=== PATIENT | female | born 1980 | race American Indian/Alaskan Native ===

== ENCOUNTER 2017-05-08 05:48 | Observation (INO) | payer BC ==
--- NOTE | 2017-05-07 17:32 | History and Physical Report ---
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 Uterine Surgery (not C/S): negative Operations: Tubal Ligation 2009 Right paratubal cystectomy 2007 Hospitalizations: negative Anesthesia Complications: negative Abnormal PAP: positive Uterine Anomaly: negative ARMAND Exposure: negative Infertility: negative Infection History HIV Risk Eval: no Hx of STD: chlamydia Active Medications (reviewed today): IBUPROFEN 800 MG ORAL TABLET (IBUPROFEN) 1 po TID (PRN) OXYCODONE-ACETAMINOPHEN 5-325 MG ORAL TABLET (OXYCODONE-ACETAMINOPHEN) 1-2po q6h Current Allergies (reviewed today): No known allergies Past Medical History: Reviewed history from 08/20/2013 and no changes required: Negative Past Medical History Past Surgical History: Reviewed history from 09/09/2014 and no changes required: Tubal Ligation 2009 Laparoscopic Right paratubal cystectomy 2007 D&C for retain POC's Family History Summary: Reviewed history Last on 09/16/2015 and no changes required:05/07/2017 Other family member - Has No Family History of Biliary Tract Cancer - Entered On : 04/09/2017 Other family member - Has No Family History of Breast Cancer - Entered On: 2016 Other family member - Has No Family History of Brain Cancer - Entered On: 2016 Other family member - Has No Family History of Colon Cancer - Entered On: 2016 Other family member - Has No Family History of DVT/PE on OCP - Entered On: 2016 Other family member - Has No Family History of Kidney/Urinary Tract Cancer - Entered On: 04/09/2017 Other family member - Has No Family History of Ovarvian Cancer - Entered On: 04/09/2017 Other family member - Has No Family History of Pancreatic Cancer - Entered On: 04/09/2017 Other family member - Has No Family History of Stomach Cancer - Entered On: 04/09 Other family member - Has No Family History of Small Bowel Cancer - Entered On: 04/09/2017 Other family member - Has No Family History of Uterine Cancer - Entered On: 04/09 General Comments - FH: Family History of Diabetes Social History: Reviewed history from 04/04/2017 and no changes required: no e/t/d Patient is Smoking History: Patient has never smoked. Risk Factors: Smoked Tobacco Use: Never smoker Smokeless Tobacco Use: Never Passive smoke exposure: no Drug use: no HIV high-risk behavior: no Alcohol use: no Exercise: no Seatbelt use: 100 % PAP Smear History: Date of Last PAP Smear: 11/02/2016 Previous Tobacco Use: Signed On - 04/04/2017 Smoked Tobacco Use: Never smoker Smokeless Tobacco Use: Never Passive smoke exposure: no Drug use: no HIV high-risk behavior: no Previous Alcohol Use: Signed On - 04/04/2017 Alcohol use: yes Type: occ Drinks per day: social Exercise: no Seatbelt use: 100 % PAP Smear History: Date of Last PAP Smear: 11/02/2016 Review of Systems General Denies fever, chills, sweats, anorexia, fatigue, weakness, malaise, weight loss and sleep disorder. Complains of menorrhagia and painful periods. Denies vaginal discharge, incontinence, dysuria, hematuria, urinary frequency, amenorrhea, abnormal vaginal bleeding, pelvic pain, genital sores, decreased libido, painful sex, urinary urgency, hot flashes, vaginal dryness, vaginal itching and vaginal odor. CV Denies chest pains, palpitations, syncope, dyspnea on exertion, orthopnea, PND and peripheral edema. Resp Denies cough, dyspnea at rest, excessive sputum, hemoptysis, wheezing and pleurisy. GI Denies nausea, vomiting, diarrhea, constipation, change in bowel habits, abdominal pain, melena, hematochezia, jaundice, gas/bloating, indigestion/ heartburn, dysphagia and odynophagia. Endo Denies cold intolerance, heat intolerance, polydipsia, polyphagia, polyuria and unusual weight change. Breast Denies left breast lump, right breast lump, nipple discharge, bloody discharge from nipple, breast pain, abnormal mammogram and breast enlargement. MS Denies back pain, joint pain, joint swelling, muscle cramps, muscle weakness, stiffness, arthritis, sciatica, restless legs, leg pain at night and leg pain with exertion. Derm Denies rash, itching, dryness and suspicious lesions. Neuro Denies paralysis, paresthesias, headache, seizures, tremors, vertigo, transient blindness, frequent falls, frequent headaches and difficulty walking. Psych Denies depression, anxiety, irritability and mood swings. Eyes Denies blurring, diplopia, irritation, discharge, vision loss, eye pain and photophobia. ENT Denies earache, ear discharge, tinnitus, decreased hearing, nasal congestion, nosebleeds, sore throat and hoarseness. Allergy Denies urticaria, allergic rash, hay fever and recurrent infections. Heme Denies abnormal bruising, bleeding and enlarged lymph nodes. 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 Questions answered. Discussed with patient various medical and surgical therapies common for treatment: Hormonal/medical therapy,endometrial ablation or hysterectomy. she desires to proceed with hysterectomy with removal of both fallopian tubes and other indicated procedures Consent reviewed and signed . Possible laparoscopy or laparotomy explained to patient. The risks and alternatives for this surgery were reviewed with the patient. She was informed of possible bleeding, infection, injury to bowel, bladder, ureters or other adjacent organs. She desires ovarian conservation. She was informed she may require surgery later to have her ovaries removed for a benign or mailgnant condition. She was also informed she will not be able to get after her uterus has been removed. The patient was instructed/informed the following: The normal length of hospital stay for this procedure. Nothing to eat or drink after midnight the evening prior to surgery. Clear liquids the day before surgery. Fleets enema the day prior to surgery. Pre-op instruction sheets given. Wound care instructions given. Infection precautions reviewed, patient to call for any signs or symptoms of infection. The usual discomforts associated with this procedure were detailed. Proper use of pain medicines was reviewed. Patient was given ample opportunity to have all her questions answered before signing informed consent. Problem # 2: Secondary dysmenorrhea (ICD-625.3) (XLD12-O49.5) Problem # 3: Pelvic and perineal pain (ICD-789.00) (QOB80-S37.2) It was extensively explained to her that her pain may persist, recur or change in nature due to the difficulty with diagnosis chronic pelvic pain or development of adhesions. She declined other treatment options at this time and desires to proceed wtih hysterectomy with (B) salpingectomy and other indicated procedures Counseling and coordination of care was >50% of the face to face time. The total face to face time for this visit was 40 minutes. Medications Added to Medication List This Visit: 1) Ibuprofen 800 Mg Oral Tablet (Ibuprofen) .... 1 po tid (prn) 2) Oxycodone-acetaminophen 5-325 Mg Oral Tablet (Oxycodone-acetaminophen) .... 1-2po q6h Prescriptions: IBUPROFEN 800 MG ORAL TABLET (IBUPROFEN) 1 po TID (PRN) #60 x 1 Entered and Authorized by: Dilma Aguilar MD Method used: Print then Give to Patient RxID: [id number] OXYCODONE-ACETAMINOPHEN 5-325 MG ORAL TABLET (OXYCODONE-ACETAMINOPHEN) 1-2po q6h #20 Tablet x 0 Entered and Authorized by: Dilma Aguilar MD Method used: Print then Give to Patient RxID: [id number] Medications and Allergies Allergies Allergy/AdvReac Type Severity Reaction Status Date / Time No Known Allergies Allergy Verified 05/07/17 15:13 Home Medications Medication Instructions Recorded Confirmed Last Taken Type No Known Home Medications [No 05/07/17 05/07/17 Unknown History Reported Home Medications] Active Meds: Active Medications Celecoxib (Celebrex) 200 mg PO PREOP NR Stop: 05/08/17 21:00 Famotidine (Pepcid) 20 mg PO PREOP NR Stop: 05/08/17 21:00 Fentanyl (Sublimaze) 100 mcg IV ONCE NR Stop: 05/08/17 21:00 Gabapentin (Neurontin) 300 mg PO PREOP NR Stop: 05/08/17 21:00 Sodium Chloride (Nacl 0.9% 1000 Ml) 1,000 mls @ 100 mls/hr IV DIRECT JESUSITA Midazolam HCl (Versed) 2 mg IV PREOP NR Stop: 05/08/17 21:00 Assessment and Plan - Patient Problems (1) Menorrhagia Status: Acute Qualifiers: Menorrahagia type: M (2) Secondary dysmenorrhea Status: Acute (3) Pelvic pain Status: Acute
[~2017-05-08 05:48] MED LIST: ANCEF/STERILE WATER 2 GM/20 ML 2 GM/20 ML SYRINGE IV NR
[2017-05-08] MEDS ORDERED: NACL BACTERIOSTATIC INFILTRATI ONE (06:38)
[2017-05-08] MEDS ORDERED: VERSED IV NR (07:00)
[2017-05-08] MEDS ORDERED: SUBLIMAZE IV NR (07:00)
[2017-05-08] MEDS ORDERED: NEURONTIN PO NR (07:00)
[2017-05-08] MEDS ORDERED: NACL 0.9% 1000 ML 1,000 ML IV SCH (07:00)
[2017-05-08] MEDS ORDERED: PEPCID PO NR (07:00)
[2017-05-08 07:13] LABS: Basophils % (Auto) 0.2 % (0.0-1.8); Eosinophils % (Auto) 0.3 % (0.0-4.3); Hematocrit 38.5 % (30.3-42.9); Hemoglobin 12.8 gm/dl (10.1-14.3); Mean Corpuscular HGB Conc 33 % (30-34); Mean Corpuscular Hemoglobin 29 pg (28-32); Mean Corpuscular Volume 87 fl (79-97); Platelet Count 254 K/mm3 (140-440); Red Blood Count 4.41 M/mm3 (3.65-5.03); Red Cell Distribution Width 12.4 % (13.2-15.2); White Blood Count 10.9 K/mm3 (4.5-11.0)
--- NOTE | 2017-05-08 07:19 | Anesthesia Day of Surgery ---
Anesthesia Day of Surgery - Day of Surgery Patient Examined: Yes Patient H&P Reviewed: Yes Patient is NPO: Yes
--- NOTE | 2017-05-08 07:19 | Anesthesia Consultation ---
Anesthesia Consult and Med Hx Date of service: 05/08/17 - Airway Anesthetic Teeth Evaluation: Good ROM Head & Neck: Adequate Mental/Hyoid Distance: Adequate Mallampati Class: Class I Intubation Access Assessment: Good - Pulmonary Exam CTA: Yes - Cardiac Exam Cardiac Exam: RRR - Pre-Operative Health Status ASA Pre-Surgery Classification: ASA1 Proposed Anesthetic Plan: General Nerve Block: TAP - Pulmonary Hx Smoking: No - Cardiovascular System Hx Hypertension: No - Central Nervous System Hx Psychiatric Problems: No - Other Systems Hx Alcohol Use: Yes (occas) Hx Cancer: No
[2017-05-08] MEDS ORDERED: MARCAINE 0.5% 30 ML INFILTRATI ONE (07:23)
[2017-05-08] MEDS ORDERED: CLONIDINE 1,000 MCG/10 ML VIAL EP ONE (07:24)
[2017-05-08] MEDS ORDERED: XYLOCAINE 1% 20 mL ONE (07:24)
[2017-05-08] MEDS ORDERED: DECADRON ONE ×2 (07:24→09:00)
[2017-05-08] MEDS ORDERED: DIPRIVAN 10 MG/ML IV ONE (07:26)
[2017-05-08] MEDS ORDERED: ZEMURON IV ONE (07:26)
[2017-05-08] MEDS ORDERED: DILAUDID ONE (07:26)
[2017-05-08] MEDS ORDERED: THROMBIN (BOVINE) TP ONE ×2 (07:32→08:55)
[2017-05-08] MEDS ORDERED: CALCIUM CHLORIDE IV ONE ×2 (07:32→08:55)
[2017-05-08] MEDS ORDERED: NEOSPORIN GU IR ONE ×2 (07:33→08:55)
[2017-05-08] MEDS ORDERED: NACL 0.9% IR ONE (08:55)
[2017-05-08] MEDS ORDERED: XYLOCAINE MPF 2% ONE (08:59)
[2017-05-08] MEDS ORDERED: NEOSTIGMINE ONE (09:00)
[2017-05-08] MEDS ORDERED: ZOFRAN ONE (09:00)
[2017-05-08] MEDS ORDERED: ROBINUL ONE (09:00)
[2017-05-08] MEDS ORDERED: TORADOL ONE (09:00)
[2017-05-08] MEDS ORDERED: ePHEDrine SULFATE ONE (09:06)
[2017-05-08] MEDS ORDERED: NACL 0.9% 1000 ML 1,000 ML ONE (09:12)
--- NOTE | 2017-05-08 10:28 | Post Operative Note ---
Pre-op diagnosis: Menorrhagia, pelvic pain Post-op diagnosis: same Procedure: RATH, (B) salpiongectomy, Fulguration of endometriosis, ovarian cystectomy (L) Anesthesia: GETA Surgeon: BELLA BARNES Estimated blood loss: minimal Pathology: list (uterus, cervix, (B) tubes, (L) ov cyst) Specimen disposition: to lab Condition: stable Disposition: PACU
[2017-05-08] MEDS ORDERED: DILAUDID IV PRN (11:00)
--- NOTE | 2017-05-08 11:06 | Post Anesthesia Evaluation ---
- Post Anesthesia Evaluation Patient Participated: Yes Airway Patent: Yes Stable Respiratory Function: Yes Temp > 96.8F: Yes Pain Manageable: Yes Adequeate Hydration: Yes Anesthesia Complications: No
[2017-05-08] MEDS ORDERED: ANCEF/NS 1 GM/50 ML 1 GM/50 ML BAG IV SCH (12:32)
[2017-05-08] MEDS ORDERED: ZOFRAN PO PRN (12:32)
[2017-05-08] MEDS ORDERED: NARCAN 0.4 MG/1 ML IV PRN (12:32)
[2017-05-08] MEDS ORDERED: TYLENOL PO SCH ×2 (12:32)
[2017-05-08] MEDS ORDERED: REGLAN PO PRN (12:32)
--- NOTE | 2017-05-08 15:00 | Operative Report ---
Operative Report Operative Report: Date: 05/08/2017 Preoperative diagnosis: 1. Menorrhagia 2. Secondary dysmenorrhea 3. Pelvic pain Postoperative diagnosis: 1. Menorrhagia 2. Secondary dysmenorrhea 3. Pelvic pain 4. Endometriosis 5. Left ovarian cyst Procedure: 1. Robot-assisted total hysterectomy 2. Bilateral salpingectomy 3. Fulguration of endometriosis 4. Left ovarian cystectomy Surgeon: Dilma Aguilar MD Steward Dishwasher: Alisha Walker Anesthesiologist: Torres Winter M.D. Anesthesia: General endotracheal anesthesia EBL: Approximately 50 mL Findings: Exam under anesthesia was unremarkable. Uterus was sounded to 8 cm. Left ovarian cyst. Endometriosis implants bilateral uterosacral ligaments. Procedure: Patient was taken to the OR and placed in the supine position. General anesthesia was induced and an oral gastric tube was placed. Her neck and head were placed on foam support. Foam eye protection with goggles were secured in place. Then foam face protection was placed and secured. Foam shoulder pads were then positioned on her shoulders for Trendelenburg positioning. She was then placed in dorsolithotomy position. Exam under anesthesia unremarkable. The abdomen and vagina were then prepped and draped in the usual sterile fashion. Timeout was performed. A Rodriguez catheter was inserted into the bladder with drainage of clear yellow urine. The operative speculum was introduced into the vagina and the anterior lip of the cervix was grasped with single-toothed tenaculum. The uterus was sounded to 8 cm. The cervix was progressively dilated to allow the large V care uterine manipulator. The bulb of the manipulator was inflated and the speculum and tenaculum were removed. The cup of the manipulator was placed around the cervix and the blue occluder of the manipulator was properly positioned in the vagina. A laparotomy sponge that was saturated with a solution of polymyxin and saline was placed in the vagina to ensure pneumoperitoneum. Sterile gloves were placed and attention was turned to the abdomen. A 10 mm vertical supraumbilical incision was made approximately 10 cm superior to the elevated fundus of the uterus. A 10 mm trocar with the laparoscope and camera attached was introduced through this incision under direct visualization. The abdomen was insufflated. No obvious bowel, bladder, ureteral, or major vascular injury was noted. The patient was then placed in steep Trendelenburg position and the following trochars were placed under direct visualization: 8 mm robotic trochars were placed through incisions made in the bilateral midclavicular lower abdominal region approximately 10 cm lateral and approximately 2 cm below the midline incision, and a 5 mm trocar was placed through an incision made in the right lower lateral pelvis approximately 2 cm superior- iliac crest. The 10 mm laparoscope was then replaced by a 5 mm laparoscope that was placed through the 5 millimeter lateral trocar. The 10mm trocar was then removed, the Ferny John fascial closure device was placed through the incision and a 0 Vicryl was placed through the fascia. Once the suture was secured the 10 mm trocar was reintroduced. Once the trochars were in the appropriate positions, the the da Danyel robot system was engaged. The EndoShears and bipolar device was placed through the 8 mm trochars and positioned then attention was turned to the console. The uterus was elevated and bilateral salpingectomy was performed. Each tube was removed through the 5 mm trocar and sent to pathology in separate containers. Then the utero-ovarian ligaments were clamped. cauterized and incised bilaterally using 30 W of energy. Then the round ligaments were clamped , cauterized and incised bilaterally. The anterior leaf of the broad ligament was elevated and careful blunt and sharp dissection the bladder flap was created and dissected away from the lower uterine segment and cervix. The posterior leaf of the broad ligament was dissected away from the uterine vessels. The cup of the uterine manipulator was palpated both anteriorly and posteriorly. Course of the ureters was visualized and was confirmed to be away from the operative field. The uterine vessels were then clamped and cauterized bilaterally at the outline of the manipulator cup. Blanching of the uterus was then noted. Attention was again turned to the anterior lower uterine segment and the bladder was confirmed to be away from the operative field. Then attention was turned again to the posterior where the cup of the manipulator was palpated and a colpotomy was performed down to the cup. The incision was extended in the lateral position. The uterine vessels that were again clamped and cauterized and incised. Continuing along the cup of the manipulator in a circumferential manner. The colpotomy was completed. The uterus and cervix were then removed through the vaginal incision. The pelvis was irrigated with warm normal saline. A clean moist laparotomy sponge was placed in the vagina to maintain pneumoperitoneum. The vagina cuff was reapproximated using V LOC 180 suture in a simple running stitch. Then a J stitch was performed to secure the suture. Again the pelvis was copiously irrigated with polymixin in warm normal saline. The laparotomy sponge was removed from the vagina. No bowel, bladder, ureteral or major vascular injury was noted. The cyst on the left ovary was then excised and sent to pathology in a separate container. Hemostasis was obtained with electrocoagulation. Once hemostasis was noted, platelet rich plasma was applied to the operative field to ensure hemostasis. Then poor plasma was applied to the operative field to decrease formation of adhesions. Again hemostasis was noted. The pelvis was again inspected, no bowel bladder or ureteral or major vascular injury was noted. Then the instruments were removed, the robot was disengaged. The 10 mm trocar was removed and the fascia was ligated with the 0 Vicryl suture that was placed at the beginning of the procedure. The patient was taken out of Trendelenburg position, the abdomen was desufflated, the remaining trochars were removed. Incisions were reapproximated using 4-0 Vicryl in a subcuticular manner. The vagina was then inspected, no bleeding was noted and clear yellow urine was draining into the Rodriguez bag from the bladder at the end of the procedure. Patient was taken to recovery room in stable condition.
[2017-05-08] MEDS: TORADOL IV SCH ×2 (15:02→23:51)
[2017-05-08] MEDS: ANCEF/NS 1 GM/50 ML 1 GM/50 ML BAG IV SCH ×2 (16:03→23:49)
--- NOTE | 2017-05-08 17:59 | Progress Note ---
Assessment and Plan DOS Findings and procedure explained, plan of care discussed, questions answered. She voiced understanding and agrees with course of care - Patient Problems (1) History of robot-assisted laparoscopic hysterectomy Current Visit: Yes Status: Acute (2) Status post bilateral salpingectomy Current Visit: Yes Status: Acute (3) Endometriosis of pelvic peritoneum Current Visit: Yes Status: Chronic (4) Ovarian cyst Current Visit: Yes Status: Resolved Qualifiers: Laterality: L (5) Menorrhagia Current Visit: Yes Status: Acute Qualifiers: Menorrahagia type: M (6) Secondary dysmenorrhea Current Visit: Yes Status: Acute (7) Pelvic pain Current Visit: Yes Status: Acute Subjective - Subjective Date of service: 05/08/17 Principal diagnosis: DOS: RATH, (B) salpingectomy, endometriosis Interval history: Patient resting in bed, alert and appropriately responsive. Had some nausea when she first came to the floor that resolved with po Zofran, desires to continue regular diet Patient reports: appetite normal, voiding normally (~200mL clear yellow urine in urometer and cain bag now) Objective - Vital Signs Latest vital signs: Vital Signs Temp Pulse Resp BP BP Pulse Ox 05/08/17 16:05 98.0 F 96 H 18 106/66 05/08/17 12:20 97.3 F L 74 20 113/70 05/08/17 12:00 84 12 111/65 100 05/08/17 11:35 64 15 105/62 100 05/08/17 11:10 72 13 108/67 100 05/08/17 10:55 57 L 11 L 98/55 100 05/08/17 10:40 67 15 105/59 100 05/08/17 10:25 67 20 99/58 100 05/08/17 10:20 80 25 H 104/64 100 05/08/17 10:15 79 25 H 106/65 100 05/08/17 10:10 97.7 F 82 22 107/67 100 05/08/17 07:50 64 12 100/60 100 05/08/17 07:45 65 13 101/61 100 05/08/17 07:40 64 12 97/87 100 05/08/17 07:35 71 17 109/64 100 05/08/17 07:30 66 16 113/74 100 05/08/17 07:28 69 19 105/62 100 05/08/17 06:23 97.7 F 76 12 104/64 98 Intake and Output 05/08/17 05/08/17 05/08/17 06:59 14:59 22:59 Intake Total 725 120 Output Total 200 700 Balance 525 -580 Intake: IV 725 Left Hand 125 Oral 120 Output: Urine 200 700 Indwelling Catheter 700 Other: Total, Intake Amount 120 Total, Output Amount 700 Voiding Method Toilet Indwelling Catheter - Exam Lungs: Present: Normal air movement Abdomen: Present: normal appearance, soft, normal bowel sounds - Labs Labs: Abnormal lab results 05/08/17 Range/Units 06:40 RDW 12.4 L (13.2-15.2) % Lymph % (Auto) 10.1 L (13.4-35.0) % Aurora % (Auto) 8.7 H (0.0-7.3) % Lymph # 1.1 L (1.2-5.4) K/mm3 Aurora # 1.0 H (0.0-0.8) K/mm3 Seg Neutrophils % 80.7 H (40.0-70.0) % Seg Neutrophils # 8.8 H (1.8-7.7) K/mm3
[2017-05-08] MEDS: TYLENOL PO SCH (18:00)
[2017-05-08] MEDS ORDERED: TYLENOL ONE (18:21)
[2017-05-08] MEDS: LACTATED RINGERS 1,000 ML IV SCH (20:27)
[2017-05-08] MEDS: PEPCID IV SCH (21:50)
[2017-05-09] MEDS: LACTATED RINGERS 1,000 ML IV SCH (04:37)
[2017-05-09] MEDS: TORADOL IV SCH (05:09)
[2017-05-09 06:20] LABS: Hematocrit 34.1 % (30.3-42.9); Hemoglobin 11.4 gm/dl (10.1-14.3)
--- NOTE | 2017-05-09 07:08 | Progress Note ---
Assessment and Plan Patient had episodes of hypotension probably d/t anesthesia. She has no evidence of postoperative bleeding. Observe for now, encouraged ambulation with assistance. Possible d/c home if asymptomatic and doppler normal - Patient Problems (1) History of robot-assisted laparoscopic hysterectomy Current Visit: Yes Status: Acute (2) Status post bilateral salpingectomy Current Visit: Yes Status: Acute (3) Pain in right thigh Current Visit: Yes Status: Acute Plan to address problem: No obvious evidence of DVT however will proceed with LE doppler Plan of care explained, questions answered, she voiced understanding and agrees with care (4) Endometriosis of pelvic peritoneum Current Visit: Yes Status: Chronic (5) Ovarian cyst Current Visit: Yes Status: Resolved Qualifiers: Laterality: L (6) Menorrhagia Current Visit: Yes Status: Resolved Qualifiers: Menorrahagia type: M (7) Secondary dysmenorrhea Current Visit: Yes Status: Chronic (8) Pelvic pain Current Visit: Yes Status: Chronic Subjective - Subjective Date of service: 05/09/17 Principal diagnosis: POD#1 RATH, (B) salpingectomy, endometriosis Interval history: Patient resting in bed, alert and appropriately responsive. Complains of soreness in her stomach and right thigh pain Patient reports: appetite normal, no nauseated (desires to continue regular diet ) Objective - Vital Signs Latest vital signs: Vital Signs Temp Pulse Resp BP BP Pulse Ox 05/09/17 04:00 98.6 F 66 16 86/52 05/09/17 01:15 98.6 F 65 16 100/63 05/08/17 23:30 98.6 F 67 16 97/64 05/08/17 19:30 98.6 F 66 16 101/61 05/08/17 16:05 98.0 F 96 H 18 106/66 05/08/17 12:20 97.3 F L 74 20 113/70 05/08/17 12:00 84 12 111/65 100 05/08/17 11:35 64 15 105/62 100 05/08/17 11:10 72 13 108/67 100 05/08/17 10:55 57 L 11 L 98/55 100 05/08/17 10:40 67 15 105/59 100 05/08/17 10:25 67 20 99/58 100 05/08/17 10:20 80 25 H 104/64 100 05/08/17 10:15 79 25 H 106/65 100 05/08/17 10:10 97.7 F 82 22 107/67 100 05/08/17 07:50 64 12 100/60 100 05/08/17 07:45 65 13 101/61 100 05/08/17 07:40 64 12 97/87 100 05/08/17 07:35 71 17 109/64 100 05/08/17 07:30 66 16 113/74 100 05/08/17 07:28 69 19 105/62 100 Intake and Output 05/08/17 05/09/17 05/09/17 22:59 06:59 14:59 Intake Total 170 1000 Output Total 1600 1700 Balance -1430 -700 Intake: IV 50 1000 ANCEF/NS 1 GM/50 ML 1 gm 50 In 50 ml @ 100 mls/hr IV Q8H JESUSITA Rx#:[id number] Lactated Ringers 1,000 ml 1000 @ 125 mls/hr IV DIRECT JESUSITA Rx#:[id number] Oral 120 Output: Urine 1600 1700 Indwelling Catheter 1600 1700 Other: Total, Intake Amount 120 Total, Output Amount 900 800 Voiding Method Indwelling Catheter - Exam Breasts: Present: deferred Cardiovascular: Present: Regular rate Lungs: Present: Normal air movement Abdomen: Present: normal appearance, soft, normal bowel sounds. Absent: distention Extremities: Present: normal. Absent: tenderness, edema Incision: Present: normal, dry, intact - Labs Labs: Abnormal lab results 05/08/17 Range/Units 06:40 RDW 12.4 L (13.2-15.2) % Lymph % (Auto) 10.1 L (13.4-35.0) % Braxton % (Auto) 8.7 H (0.0-7.3) % Lymph # 1.1 L (1.2-5.4) K/mm3 Braxton # 1.0 H (0.0-0.8) K/mm3 Seg Neutrophils % 80.7 H (40.0-70.0) % Seg Neutrophils # 8.8 H (1.8-7.7) K/mm3
[2017-05-09] MEDS: TYLENOL PO SCH ×3 (08:46→14:03)
[2017-05-09] MEDS: PEPCID IV SCH ×2 (08:46→21:25)
[2017-05-09] MEDS: PERCOCET 5/325 PO PRN (13:55)
--- NOTE | 2017-05-09 17:23 | Progress Note ---
Subjective Date of service: 05/09/17 Principal diagnosis: POD#1 RATH, (B) salpingectomy, endometriosis Interval history: 1st POD after robotic hysterectomy Patient is in the bed, comfortable. Pain is well controlled with pain meds. Ambulated well. No nausea or vomiting. No anesthesia complications Objective - Constitutional Vitals: Vital Signs - 12hr 05/09/17 05/09/17 05/09/17 07:50 10:05 11:50 Temperature 98.9 F 98.7 F Pulse Rate 49 L 56 L 49 L Respiratory 18 18 18 Rate Blood Pressure 96/63 89/52 95/60 [Right] 05/09/17 15:28 Temperature Pulse Rate 59 L Respiratory Rate Blood Pressure 93/54 [Right] - Labs CBC & Chem 7: 05/09/17 05:39
--- NOTE | 2017-05-09 19:30 | Progress Note ---
Assessment and Plan BP's low but stable, no complaints, no s/s postop bleeding. Probably d/t general anesthesia Doppler and EKG results discussed with patient Will give some IVF Observe tonight, ? d/c tomorrow if still stable and asymptomatic Plan of care discussed with josue( no family/visitors present), she voiced inderstanding and agrees with plan l - Patient Problems (1) History of robot-assisted laparoscopic hysterectomy Current Visit: Yes Status: Acute (2) Status post bilateral salpingectomy Current Visit: Yes Status: Acute (3) Pain in right thigh Current Visit: Yes Status: Resolved (4) Endometriosis of pelvic peritoneum Current Visit: Yes Status: Chronic (5) Ovarian cyst Current Visit: Yes Status: Resolved Qualifiers: Laterality: L (6) Menorrhagia Current Visit: Yes Status: Resolved Qualifiers: Menorrahagia type: M (7) Secondary dysmenorrhea Current Visit: Yes Status: Chronic (8) Pelvic pain Current Visit: Yes Status: Chronic Subjective - Subjective Date of service: 05/09/17 Principal diagnosis: POD#1 RATH, (B) salpingectomy, endometriosis Interval history: Patient resting in bed, alert and appropriately responsive. BALDWIN resolved, Patient reports: appetite normal (but decreased), voiding normally, pain well controlled, ambulating normally (denies lightheadedness or dizziness with ambulation. No bleeding ) Objective - Vital Signs Latest vital signs: Vital Signs Temp Pulse Resp BP Pulse Ox 05/09/17 16:20 99.2 F 64 18 93/62 05/09/17 15:28 59 L 93/54 98 05/09/17 11:50 98.7 F 49 L 18 95/60 05/09/17 10:05 56 L 18 89/52 100 05/09/17 07:50 98.9 F 49 L 18 96/63 05/09/17 04:00 98.6 F 66 16 86/52 05/09/17 01:15 98.6 F 65 16 100/63 05/08/17 23:30 98.6 F 67 16 97/64 05/08/17 19:30 98.6 F 66 16 101/61 Intake and Output 05/09/17 05/09/17 05/09/17 06:59 14:59 22:59 Intake Total 1000 360 240 Output Total 1700 375 100 Balance -700 -15 140 Intake: IV 1000 Lactated Ringers 1,000 ml 1000 @ 125 mls/hr IV DIRECT [facility] Rx#:[id number] Oral 360 240 Output: Urine 1700 375 100 Indwelling Catheter 1700 Void 375 100 Other: Total, Intake Amount 240 240 Total, Output Amount 800 275 100 - Exam Breasts: Present: deferred Cardiovascular: Present: Regular rate Lungs: Present: Clear to auscultation, Normal air movement Abdomen: Present: normal appearance, soft, normal bowel sounds. Absent: distention, tenderness, guarding Extremities: Present: normal. Absent: tenderness, edema
[2017-05-09] MEDS: NACL 0.9% 1000 ML 1,000 ML IV SCH (19:52)
[2017-05-10] MEDS: PERCOCET 5/325 PO PRN ×2 (00:36→15:16)
[2017-05-10 02:04] LABS: Basophils % (Auto) 0.5 % (0.0-1.8); Eosinophils % (Auto) 0.4 % (0.0-4.3); Hematocrit 31.3 % (30.3-42.9); Hemoglobin 10.5 gm/dl (10.1-14.3); Mean Corpuscular HGB Conc 33 % (30-34); Mean Corpuscular Hemoglobin 30 pg (28-32); Mean Corpuscular Volume 89 fl (79-97); Platelet Count 196 K/mm3 (140-440); Red Cell Distribution Width 12.6 % (13.2-15.2); White Blood Count 6.3 K/mm3 (4.5-11.0)
[2017-05-10 02:06] LABS: Alanine Aminotransferase 74 units/L (7-56); Albumin 2.9 g/dL (3.9-5); Alkaline Phosphatase 54 units/L (35-129); Anion Gap 13 mmol/L; BUN/Creatinine Ratio 14; Bilirubin,Total < 0.20 mg/dL (0.1-1.2); Blood Urea Nitrogen 10 mg/dL (7-17); Calcium 8.2 mg/dL (8.4-10.2); Carbon Dioxide 25 mmol/L (22-30); Chloride 104.7 mmol/L (98-107); Glucose 114 mg/dL (65-100); Potassium 3.9 mmol/L (3.6-5.0); Sodium 139 mmol/L (137-145); Total Protein 5.7 g/dL (6.3-8.2)
[2017-05-10] MEDS: NACL 0.9% 1000 ML 1,000 ML IV SCH (03:31)
--- NOTE | 2017-05-10 09:47 | Event Note ---
Date: 05/10/17 Resting in bed, sl, nausea last pm Cardiology evaluating pt now
--- NOTE | 2017-05-10 09:50 | Consultation ---
History of Present Illness Consult date: 05/10/17 Requesting physician: BELLA BARNES Consult reason: bradycardia History of present illness: Pt is a 37 YO female who is s/p robot-assisted laparoscopic hysterectomy and bilateral salpingectomy, POD #2. She was noted to develop hypotension and sinus bradycardia post-operatively and thus cardiology has been consulted. On evaluation, she denies any complaints. She has been OOB to bathroom but has not yet ambulated around unit. Medications and Allergies Allergies Allergy/AdvReac Type Severity Reaction Status Date / Time No Known Allergies Allergy Verified 05/07/17 15:13 Home Medications Medication Instructions Recorded Confirmed Last Taken Type No Known Home Medications [No 05/07/17 05/07/17 Unknown History Reported Home Medications] Active Meds: Active Medications Famotidine (Pepcid) 20 mg IV BID JESUSITA Last Admin: 05/09/17 21:25 Dose: 20 mg Sodium Chloride (Nacl 0.9% 1000 Ml) 1,000 mls @ 125 mls/hr IV DIRECT JESUSITA Last Admin: 05/10/17 03:31 Dose: 125 mls/hr Metoclopramide HCl (Reglan) 10 mg PO Q6H PRN PRN Reason: Nausea And Vomiting Last Admin: 05/10/17 04:29 Dose: 10 mg Naloxone HCl (Narcan 0.4 Mg/1 Ml) 0.1 mg IV Q2MIN PRN PRN Reason: Res Rate </= 8 or 02 SAT < 92% Ondansetron HCl (Zofran) 4 mg PO Q8H PRN PRN Reason: N/V unrelieved by Reglan Last Admin: 05/08/17 15:02 Dose: 4 mg Oxycodone/Acetaminophen (Percocet 5/325) 2 tab PO Q6H PRN PRN Reason: Pain, Moderate (4-6) Last Admin: 05/10/17 00:36 Dose: 2 tab Review of Systems All systems: negative (no complaints) Physical Examination Vital Signs Temp Pulse Resp BP Pulse Ox 97.7 F 76 12 104/64 98 05/08/17 06:23 05/08/17 06:23 05/08/17 06:23 05/08/17 06:23 05/08/17 06:23 General appearance: no acute distress HEENT: Positive: PERRL, Normocephaly, Mucus Membranes Moist Neck: Positive: neck supple, trachea midline Cardiac: Positive: S1/S2, Bradycardia Lungs: Positive: clear to auscultation Neuro: Positive: Grossly Intact, Cranial Nerve 2-12 Intact Abdomen: Positive: Soft, Active Bowel Sounds, Other (laparoscopic surgical sites c/d/i) Skin: Positive: Clear. Negative: Rash Musculoskeletal: No Fluid Collection, No Pain, Normal Range of Motion Extremities: Absent: edema Results 05/10/17 01:24 05/10/17 01:24 Cardiac Enzymes 05/10/17 Range/Units 01:24 AST 88 H (5-40) units/L CBC 05/10/17 Range/Units 01:24 WBC 6.3 (4.5-11.0) K/mm3 RBC 3.50 L (3.65-5.03) M/mm3 Hgb 10.5 (10.1-14.3) gm/dl Hct 31.3 (30.3-42.9) % Plt Count 196 (140-440) K/mm3 Lymph # 2.2 (1.2-5.4) K/mm3 [place] # 0.4 (0.0-0.8) K/mm3 Eos # 0.0 (0.0-0.4) K/mm3 Baso # 0.0 (0.0-0.1) K/mm3 Comprehensive Metabolic Panel 05/10/17 Range/Units 01:24 Sodium 139 (137-145) mmol/L Potassium 3.9 (3.6-5.0) mmol/L Chloride 104.7 (98-107) mmol/L Carbon Dioxide 25 (22-30) mmol/L BUN 10 (7-17) mg/dL Creatinine 0.7 (0.7-1.2) mg/dL Glucose 114 H (65-100) mg/dL Calcium 8.2 L (8.4-10.2) mg/dL AST 88 H (5-40) units/L ALT 74 H (7-56) units/L Alkaline Phosphatase 54 (35-129) units/L Total Protein 5.7 L (6.3-8.2) g/dL Albumin 2.9 L (3.9-5) g/dL - Imaging and Cardiology EKG: pending Assessment and Plan Assessment: Sinus bradycardia Transient hypotension S/p robot-assisted laparoscopic hysterectomy and bilateral salpingectomy, POD #2 Plan: 12-lead EKG with SR with NAF. Ambulate pt. If pt with no cardiac complaints and stable VS during ambulation, may discharge home today from cardiology standpoint. Recommend pt to follow up in our office with Yisel Chery NP, within 1 month of hospital discharge ([phone]). The patient has been seen in conjunction with Dr. NITO Hawk who agrees with the assessment and plan of care.
[2017-05-10] MEDS: PEPCID IV SCH (10:02)
--- NOTE | 2017-05-10 14:19 | Vascular Lab Report ---
Right Lower Extremity Venous Duplex Study: Reason for Exam: Right thigh pain. Comments on the Right: All veins visualized are freely compressible without evidence of internal echogenicity. Flow is spontaneous and phasic throughout. No evidence of acute or chronic thrombus is seen in any of the vessels visualized. Comments on the Left: A limited duplex study was done of the proximal veins of the left lower extremity. All veins visualized are freely compressible without evidence of internal echogenicity. Flow is spontaneous and phasic throughout. No evidence of acute or chronic thrombus is seen in any of the vessels visualized. Impression: No evidence of acute or chronic deep venous thrombosis in the right lower extremity.
[2017-05-10 15:15] LABS: Alanine Aminotransferase 75 units/L (7-56); Albumin/Globulin Ratio 1.2 %; Alkaline Phosphatase 56 units/L (35-129); Bilirubin,Total < 0.20 mg/dL (0.1-1.2); Total Protein 5.6 g/dL (6.3-8.2)
[2017-05-10 15:19] LABS: Bilirubin,Direct < 0.2 mg/dL (0-0.2)
[2017-05-10 16:41] VITALS: BP 114/69
--- NOTE | 2017-05-10 18:08 | Discharge Summary ---
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 Surgery was uncomplicated. Her postoperative course was significant for hypotension with bradycardia. She was observed on postop day 1. H&H was stable patient was asymptomatic however she continued to have episodes of hypotension with bradycardia. IV fluid was restarted. On postop day #1 patient had vague nonspecific complaints of right thigh pain as well as headache and mild nausea that resolved. She had positive flatus but was tolerating regular diet. Ambulating without difficulty. She denied lightheadedness or dizziness. EKG was performed and cardiology was consulted. As per cardiology recommendation she was observed on postoperative day #2. Postoperative day #2 was uncomplicated she continued to have stable H&H and was asymptomatic. Electrolytes were normal. Of note patient had slightly elevated LFTs. TSH was normal. Blood pressure increased the patient is now a lot home. Disposition: TO HOME OR SELFCARE - Discharge Diagnoses (1) History of robot-assisted laparoscopic hysterectomy Status: Acute (2) Status post bilateral salpingectomy Status: Acute (3) Pain in right thigh Status: Resolved (4) Endometriosis of pelvic peritoneum Status: Chronic (5) Ovarian cyst Status: Resolved Qualifiers: Laterality: L (6) Menorrhagia Status: Resolved Qualifiers: Menorrahagia type: M (7) Secondary dysmenorrhea Status: Resolved (8) Pelvic pain Status: Chronic (9) Elevated LFTs Status: Acute Core Measure Documentation - Palliative Care Palliative Care/ Comfort Measures: Not Applicable - Core Measures Any of the following diagnoses?: none Exam - Constitutional Vitals: Temp Pulse Resp BP Pulse Ox 98.6 F 57 L 18 114/69 98 05/10/17 16:30 05/10/17 16:30 05/10/17 16:30 05/10/17 16:30 05/10/17 16:30 General appearance: Present: no acute distress - Neck Neck: Present: supple - Respiratory Respiratory effort: normal Respiratory: negative: CTA - Cardiovascular Rhythm: regular - Extremities Extremities: no ischemia, No edema (nontender) - Abdominal General gastrointestinal: Present: soft, non-tender, non-distended, normal bowel sounds - Integumentary Integumentary: Present: clear, warm, dry (incisions without signs and symptoms of infection. Clean dry and intact) - Musculoskeletal Musculoskeletal: strength equal bilaterally - Psychiatric Psychiatric: appropriate mood/affect Plan Activity: other (no sex. Ambulate on her property approximately 1 mile a day. Void frequently.) Weight Bearing Status: Full Weight Bearing Diet: regular (a small meals frequently and a day. Increase diet slowly) Wound: open to air, keep clean and dry Special Instructions: no heavy lifting (rate is 25 pounds) Follow up with: BELLA BARNES MD [Staff Physician] - (as scheduled) DELICIA BETANCOURT MD [Staff Physician] - 3 Days (3-5days)
== END 2017-05-10 18:35 | disposition home or self-care (01) ==
LOC: OR 05:48 → INTOOBSV 10:16 → OB 10:16
PROVIDERS: ADMIT Obstetrics & Gynecology; ATTEND Obstetrics & Gynecology
DX: N92.0 Excessive and frequent menstruation with regular cycle (principal); N94.5 Secondary dysmenorrhea; N80.3 Endometriosis of pelvic peritoneum; N83.209 Unspecified ovarian cyst, unspecified side; R00.1 Bradycardia, unspecified; I95.9 Hypotension, unspecified; R79.89 Other specified abnormal findings of blood chemistry; R10.2 Pelvic and perineal pain; M79.651 Pain in right thigh; Z90.79 Acquired absence of other genital organ(s); Z90.710 Acquired absence of both cervix and uterus
CPT/HCPCS: 36415; 58571; 64450; 80053; 80074; 81025; 84443; 85014; 85018; 85025; 86850; 86900; 86901; 88305; 88307; 93005; 93010; 93971; 96365; 96375; 96376; A4217; G0378; J0690; J0735; J1100; J1170; J1885; J2250; J2405; J2704; J2710; J3010; J7030; J7120; S2900; 88302; Q0162

== ENCOUNTER 2017-06-07 10:50 | Emergency (ER) | payer BC ==
[2017-06-07 12:23] LABS: Basophils % (Auto) 0.6 % (0.0-1.8); Eosinophils % (Auto) 1.8 % (0.0-4.3); Hematocrit 38.4 % (30.3-42.9); Mean Corpuscular HGB Conc 34 % (30-34); Mean Corpuscular Hemoglobin 30 pg (28-32); Mean Corpuscular Volume 89 fl (79-97); Platelet Count 245 K/mm3 (140-440); Red Blood Count 4.31 M/mm3 (3.65-5.03); Red Cell Distribution Width 12.6 % (13.2-15.2); White Blood Count 3.7 K/mm3 (4.5-11.0)
[2017-06-07 12:37] LABS: Bilirubin,Urine NEG (Negative); Blood,Urine LG (Negative); Ketones,Urine NEG (Negative); Leukocyte Esterase,Urine NEG (Negative); Mucus,Urine FEW /HPF; Nitrite,Urine NEG (Negative); Protein,Urine <15 mg/dL mg/dL (Negative); Urobilinogen,Urine < 2.0 mg/dL (<2.0)
--- NOTE | 2017-06-07 13:43 | Progress Note ---
Subjective Date of service: 06/07/17 Interval history: s/p RATH 05/08/2017 who complalins of pelvic cramping and vaginal bleeding like a period today noted when she wiped after urination. She denies fever, chills, nausea or vomiting. No dysuria. States pain is in rectal area. States she has not had sex nor any strenuous activity. 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 Uterine Surgery (not C/S): negative Operations: Tubal Ligation 2009 Right paratubal cystectomy 2007 Hospitalizations: negative Anesthesia Complications: negative Abnormal PAP: positive Uterine Anomaly: negative ARMAND Exposure: negative Infertility: negative Infection History HIV Risk Eval: no Hx of STD: chlamydia Active Medications (reviewed today): IBUPROFEN 800 MG ORAL TABLET (IBUPROFEN) 1 po TID (PRN) OXYCODONE-ACETAMINOPHEN 5-325 MG ORAL TABLET (OXYCODONE-ACETAMINOPHEN) 1-2po q6h Current Allergies (reviewed today): No known allergies Past Medical History: Reviewed history from 08/20/2013 and no changes required: Negative Past Medical History Past Surgical History: Reviewed history from 09/09/2014 and no changes required: Tubal Ligation 2010 Right paratubal cystectomy 2007 [facility] Family History Summary: Reviewed history Last on 09/16/2015 and no changes required:05/07/2017 Other family member - Has No Family History of Biliary Tract Cancer - Entered On : 04/09/2017 Other family member - Has No Family History of Breast Cancer - Entered On: 2016 Other family member - Has No Family History of Brain Cancer - Entered On: 2016 Other family member - Has No Family History of Colon Cancer - Entered On: 2016 Other family member - Has No Family History of DVT/PE on OCP - Entered On: 2016 Other family member - Has No Family History of Kidney/Urinary Tract Cancer - Entered On: 04/09/2017 Other family member - Has No Family History of Ovarvian Cancer - Entered On: 04/09/2017 Other family member - Has No Family History of Pancreatic Cancer - Entered On: 04/09/2017 Other family member - Has No Family History of Stomach Cancer - Entered On: 04/09 Other family member - Has No Family History of Small Bowel Cancer - Entered On: 04/09/2017 Other family member - Has No Family History of Uterine Cancer - Entered On: 04/09 General Comments - FH: Family History of Diabetes Social History: Reviewed history from 04/04/2017 and no changes required: no e/t/d Patient is Smoking History: Patient has never smoked. Risk Factors: Smoked Tobacco Use: Never smoker Smokeless Tobacco Use: Never Passive smoke exposure: no Drug use: no HIV high-risk behavior: no Alcohol use: no Exercise: no Seatbelt use: 100 % PAP Smear History: Date of Last PAP Smear: 11/02/2016 Previous Tobacco Use: Signed On - 04/04/2017 Smoked Tobacco Use: Never smoker Smokeless Tobacco Use: Never Passive smoke exposure: no Drug use: no HIV high-risk behavior: no Previous Alcohol Use: Signed On - 04/04/2017 Alcohol use: yes Type: occ Drinks per day: social Exercise: no Seatbelt use: 100 % PAP Smear History: Date of Last PAP Smear: 11/02/2016 Review of Systems Objective - Constitutional Vitals: Vital Signs - 12hr 06/07/17 11:24 Temperature 98.6 F Pulse Rate 60 Respiratory 16 Rate Blood Pressure 112/73 O2 Sat by Pulse 100 Oximetry - Labs CBC & Chem 7: 06/07/17 11:55 Labs: Abnormal lab results 06/07/17 Range/Units 11:55 WBC 3.7 L (4.5-11.0) K/mm3 RDW 12.6 L (13.2-15.2) % Lymph % (Auto) 43.8 H (13.4-35.0) % [place] % (Auto) 11.8 H (0.0-7.3) % Seg Neutrophils # 1.6 L (1.8-7.7) K/mm3
[2017-06-07 13:48] LABS: Alanine Aminotransferase 17 units/L (7-56); Albumin 4.4 g/dL (3.9-5); Albumin/Globulin Ratio 1.5 %; Alkaline Phosphatase 58 units/L (35-129); Anion Gap 19 mmol/L; BUN/Creatinine Ratio 22; Blood Urea Nitrogen 13 mg/dL (7-17); Calcium 9.3 mg/dL (8.4-10.2); Carbon Dioxide 24 mmol/L (22-30); Chloride 103.5 mmol/L (98-107); Glucose 84 mg/dL (65-100); Potassium 4.2 mmol/L (3.6-5.0); Sodium 142 mmol/L (137-145); Total Protein 7.3 g/dL (6.3-8.2)
--- NOTE | 2017-06-07 13:57 | History and Physical Report ---
History of Present Illness Date of examination: 06/07/17 Chief complaint: Vaginal bleeding History of present illness: s/p RATH 05/08/2017 who complalins of pelvic cramping and vaginal bleeding like a period today noted when she wiped after urination. She denies fever, chills, nausea or vomiting. No dysuria. States pain is in rectal area. States she has not had sex nor any strenuous activity. She completed a course of Flagyl last week. 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 (not C/S): negative Operations: Tubal Ligation 2009 Right paratubal cystectomy 2007 Hospitalizations: negative Anesthesia Complications: negative Abnormal PAP: positive Uterine Anomaly: negative ARMAND Exposure: negative Infertility: negative Infection History HIV Risk Eval: no Hx of STD: chlamydia Active Medications (reviewed today): IBUPROFEN 800 MG ORAL TABLET (IBUPROFEN) 1 po TID (PRN) OXYCODONE-ACETAMINOPHEN 5-325 MG ORAL TABLET (OXYCODONE-ACETAMINOPHEN) 1-2po q6h Current Allergies (reviewed today): No known allergies Past Medical History: Reviewed history from 08/20/2013 and no changes required: Negative Past Medical History Past Surgical History: Reviewed history from 09/09/2014 and no changes required: Tubal Ligation 2009 Right paratubal cystectomy 2007 Robot-assisted total hysterectomy (05/08/2017) Bilateral salpingectomy (05/08/2017) Fulguration of endometriosis (05/08/2017) Left ovarian cystectomy (05/08/2017) Family History Summary: Reviewed history Last on 09/16/2015 and no changes required:05/07/2017 Other family member - Has No Family History of Biliary Tract Cancer - Entered On : 04/09/2017 Other family member - Has No Family History of Breast Cancer - Entered On: 2016 Other family member - Has No Family History of Brain Cancer - Entered On: 2016 Other family member - Has No Family History of Colon Cancer - Entered On: 2016 Other family member - Has No Family History of DVT/PE on OCP - Entered On: 2016 Other family member - Has No Family History of Kidney/Urinary Tract Cancer - Entered On: 04/09/2017 Other family member - Has No Family History of Ovarvian Cancer - Entered On: 04/09/2017 Other family member - Has No Family History of Pancreatic Cancer - Entered On: 04/09/2017 Other family member - Has No Family History of Stomach Cancer - Entered On: 04/09 Other family member - Has No Family History of Small Bowel Cancer - Entered On: 04/09/2017 Other family member - Has No Family History of Uterine Cancer - Entered On: 04/09 General Comments - FH: Family History of Diabetes Social History: Reviewed history from 04/04/2017 and no changes required: no e/t/d Patient is Smoking History: Patient has never smoked. Risk Factors: Smoked Tobacco Use: Never smoker Smokeless Tobacco Use: Never Passive smoke exposure: no Drug use: no HIV high-risk behavior: no Alcohol use: no Exercise: no Seatbelt use: 100 % PAP Smear History: Date of Last PAP Smear: 11/02/2016 Previous Tobacco Use: Signed On - 04/04/2017 Smoked Tobacco Use: Never smoker Smokeless Tobacco Use: Never Passive smoke exposure: no Drug use: no HIV high-risk behavior: no Previous Alcohol Use: Signed On - 04/04/2017 Alcohol use: yes Type: occ Drinks per day: social Exercise: no Seatbelt use: 100 % PAP Smear History: Date of Last PAP Smear: 11/02/2016 Medications and Allergies Allergies Allergy/AdvReac Type Severity Reaction Status Date / Time No Known Allergies Allergy Verified 05/07/17 15:13 Home Medications Medication Instructions Recorded Confirmed Last Taken Type No Known Home Medications [No 05/07/17 05/07/17 Unknown History Reported Home Medications] Review of Systems All systems: negative Gastrointestinal: abdominal pain Genitourinary: vaginal bleeding, pelvic pain - Vital Signs Vital signs: Vital Signs Temp Pulse Resp BP Pulse Ox 98.6 F 60 16 112/73 100 06/07/17 11:24 06/07/17 11:24 06/07/17 11:24 06/07/17 11:24 06/07/17 11:24 Temp Pulse Resp BP Pulse Ox 98.6 F 60 16 112/73 100 06/07/17 11:24 06/07/17 11:24 06/07/17 11:24 06/07/17 11:24 06/07/17 11:24 - Physical Exam Abdomen: Positive: normal appearance, soft, normal bowel sounds Genitourinary (Female): Positive: normal external genitalia, normal perenium Vagina: Positive: normal moisture, other (pinkish discharge, no active bleeding , cuff intact, no defects) Results Result Diagrams: 06/07/17 11:55 06/07/17 11:55 Abnormal lab results 06/07/17 06/07/17 Range/Units 11:55 11:55 WBC 3.7 L (4.5-11.0) K/mm3 RDW 12.6 L (13.2-15.2) % Lymph % (Auto) 43.8 H (13.4-35.0) % [place] % (Auto) 11.8 H (0.0-7.3) % Seg Neutrophils # 1.6 L (1.8-7.7) K/mm3 Creatinine 0.6 L (0.7-1.2) mg/dL All other labs normal. Assessment and Plan - Patient Problems (1) Vaginal bleeding Status: Acute Plan to address problem: No s/s infection, no active bleeding. Only pinkish discharge now. (2) Pelvic pain Status: Acute Plan to address problem: No s/s surgical abdomen, will proceed with ct scan to evaluate for fluid collections to other masses
--- NOTE | 2017-06-07 14:27 | Cat Scan Report ---
CT PELVIS WITH CONTRAST INDICATION: Vaginal bleeding, status post hysterectomy. COMPARISON: None similar. FINDINGS: Pelvis CT performed following IV contrast. Axial, sagittal and coronal CT reconstructions obtained. Multiple coils anterior to the sacrum on the left may represent gonadal vein embolization. Similar lesser coils also noted to right of L4 vertebral body. Uterus surgically absent without significant stranding or definite abnormal fluid collection in the pelvis. Grossly unremarkable urinary bladder, adnexa and nonopacified GI tract. Normal appendix seen. Patent aortoiliac tree. Slight bilateral SI joint degenerative spurring may be developing inferiorly. 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 Please correlate. Thank you for the opportunity to participate in this patient's care.
--- NOTE | 2017-06-07 14:38 | Emergency Department Report ---
ED General Adult HPI - General Chief complaint: Vaginal Bleeding Stated complaint: VAGINAL BLEEDING Time Seen by Provider: 06/07/17 13:26 Source: patient, RN notes reviewed Mode of arrival: Ambulatory Limitations: No Limitations - History of Present Illness Initial comments: This is a 37-year-old female who is previously known to this provider. Patient presents to the ER with complaint of vaginal bleeding when she wipes after urination. She had a hysterectomy one month ago by Dr. Aguilar. Her symptoms are intermittent 1 day. They do not radiate anywhere. They did not have exacerbating or relieving factors. She is not defecating blood. She also admits to abdominal cramping discomfort for one month after her surgery. -: Gradual Location: pelvis Radiation: non-radiation Quality: aching Consistency: intermittent Improves with: rest Worsens with: movement Associated Symptoms: denies: confusion, chest pain, cough, diaphoresis, fever/ chills, headaches, loss of appetite, malaise, nausea/vomiting, shortness of breath, syncope, weakness - Related Data Home Medications Medication Instructions Recorded Confirmed Last Taken No Known Home Medications [No 05/07/17 05/07/17 Unknown Reported Home Medications] Allergies Allergy/AdvReac Type Severity Reaction Status Date / Time No Known Allergies Allergy Verified 05/07/17 15:13 ED Review of Systems ROS: Stated complaint: VAGINAL BLEEDING Other details as noted in HPI Constitutional: denies: fever Respiratory: denies: cough Cardiovascular: denies: chest pain Gastrointestinal: abdominal pain Genitourinary: hematuria Musculoskeletal: denies: back pain Skin: denies: lesions Neurological: denies: headache, weakness ED Past Medical Hx - Past Medical History Previous Medical History?: Yes Hx Hypertension: No Hx Congestive Heart Failure: No Hx Diabetes: No Hx Asthma: No Hx COPD: No - Surgical History Past Surgical History?: Yes Additional Surgical History: Hysterectomy 05/08/2017 - Social History Smoking Status: Never Smoker Substance Use Type: None - Medications Home Medications: Home Medications Medication Instructions Recorded Confirmed Last Taken Type No Known Home Medications [No 05/07/17 05/07/17 Unknown History Reported Home Medications] ED Physical Exam - General Limitations: No Limitations General appearance: alert, in no apparent distress - Head Head exam: Present: atraumatic, normocephalic - Eye Eye exam: Present: normal appearance, EOMI. Absent: nystagmus - ENT ENT exam: Present: normal exam, normal orophraynx, mucous membranes moist, normal external ear exam - Neck Neck exam: Present: normal inspection, full ROM - Respiratory Respiratory exam: Present: normal lung sounds bilaterally. Absent: respiratory distress - Cardiovascular Cardiovascular Exam: Present: regular rate, normal rhythm, normal heart sounds. Absent: systolic murmur, diastolic murmur, rubs, gallop - GI/Abdominal GI/Abdominal exam: Present: soft, tenderness, normal bowel sounds, other ( suprapubic abdominal tenderness, surgical scars have no redness, pus or streaking). Absent: distended, guarding, rebound, rigid, pulsatile mass - Extremities Exam Extremities exam: Present: normal inspection, full ROM, normal capillary refill. Absent: pedal edema, joint swelling, calf tenderness - Back Exam Back exam: Present: normal inspection, full ROM. Absent: tenderness, CVA tenderness (R), paraspinal tenderness, vertebral tenderness - Neurological Exam Neurological exam: Present: alert, oriented X3, CN II-XII intact, normal gait, other (Extraocular movements intact. Tongue midline. No facial droop. Facial sensation intact to light touch in the V1, V2, V3 distribution bilaterally. 5 and 5 strength in 4 extremities.. Sensation is intact to light touch in 4 extremities.). Absent: motor sensory deficit - Psychiatric Psychiatric exam: Present: normal affect, normal mood - Skin Skin exam: Present: warm, dry, intact, normal color. Absent: rash ED Course Vital Signs 06/07/17 11:24 Temperature 98.6 F Pulse Rate 60 Respiratory 16 Rate Blood Pressure 112/73 O2 Sat by Pulse 100 Oximetry ED Medical Decision Making - Lab Data Result diagrams: 06/07/17 11:55 06/07/17 11:55 Vital Signs 06/07/17 11:24 Temperature 98.6 F Pulse Rate 60 Respiratory 16 Rate Blood Pressure 112/73 O2 Sat by Pulse 100 Oximetry Lab Results 06/07/17 06/07/17 06/07/17 Range/Units 11:55 11:55 11:55 WBC 3.7 L (4.5-11.0) K/mm3 RBC 4.31 (3.65-5.03) M/mm3 Hgb 13.0 (10.1-14.3) gm/dl Hct 38.4 (30.3-42.9) % MCV 89 (79-97) fl MCH 30 (28-32) pg MCHC 34 (30-34) % RDW 12.6 L (13.2-15.2) % Plt Count 245 (140-440) K/mm3 Lymph % (Auto) 43.8 H (13.4-35.0) % Placer % (Auto) 11.8 H (0.0-7.3) % Eos % (Auto) 1.8 (0.0-4.3) % Baso % (Auto) 0.6 (0.0-1.8) % Lymph # 1.6 (1.2-5.4) K/mm3 Placer # 0.4 (0.0-0.8) K/mm3 Eos # 0.1 (0.0-0.4) K/mm3 Baso # 0.0 (0.0-0.1) K/mm3 Seg Neutrophils % 42.0 (40.0-70.0) % Seg Neutrophils # 1.6 L (1.8-7.7) K/mm3 Sodium (137-145) mmol/L Potassium (3.6-5.0) mmol/L Chloride (98-107) mmol/L Carbon Dioxide (22-30) mmol/L Anion Gap mmol/L BUN (7-17) mg/dL Creatinine (0.7-1.2) mg/dL Estimated GFR ml/min BUN/Creatinine Ratio % Glucose (65-100) mg/dL Calcium (8.4-10.2) mg/dL Total Bilirubin (0.1-1.2) mg/dL AST (5-40) units/L ALT (7-56) units/L Alkaline Phosphatase (35-129) units/L Total Protein (6.3-8.2) g/dL Albumin (3.9-5) g/dL Albumin/Globulin Ratio % HCG, Quant < 2 (0-4) mIU/mL Urine Color (Yellow) Urine Turbidity (Clear) Urine pH (5.0-7.0) Ur Specific [place] (1.003-1.030) Urine Protein (Negative) mg/dL Urine Glucose (UA) (Negative) mg/dL Urine Ketones (Negative) mg/dL Urine Blood (Negative) Urine Nitrite (Negative) Urine Bilirubin (Negative) Urine Urobilinogen (<2.0) mg/dL Ur Leukocyte Esterase (Negative) Urine WBC (Auto) (0.0-6.0) /HPF Urine RBC (Auto) (0.0-6.0) /HPF U Epithel Cells (Auto) (0-13.0) /HPF Urine Mucus /HPF Blood Type O POSITIVE Antibody Screen Negative 06/07/17 06/07/17 Range/Units 11:55 12:14 WBC (4.5-11.0) K/mm3 RBC (3.65-5.03) M/mm3 Hgb (10.1-14.3) gm/dl Hct (30.3-42.9) % MCV (79-97) fl MCH (28-32) pg MCHC (30-34) % RDW (13.2-15.2) % Plt Count (140-440) K/mm3 Lymph % (Auto) (13.4-35.0) % Placer % (Auto) (0.0-7.3) % Eos % (Auto) (0.0-4.3) % Baso % (Auto) (0.0-1.8) % Lymph # (1.2-5.4) K/mm3 Placer # (0.0-0.8) K/mm3 Eos # (0.0-0.4) K/mm3 Baso # (0.0-0.1) K/mm3 Seg Neutrophils % (40.0-70.0) % Seg Neutrophils # (1.8-7.7) K/mm3 Sodium 142 (137-145) mmol/L Potassium 4.2 (3.6-5.0) mmol/L Chloride 103.5 (98-107) mmol/L Carbon Dioxide 24 (22-30) mmol/L Anion Gap 19 mmol/L BUN 13 (7-17) mg/dL Creatinine 0.6 L (0.7-1.2) mg/dL Estimated GFR > 60 ml/min BUN/Creatinine Ratio 22 % Glucose 84 (65-100) mg/dL Calcium 9.3 (8.4-10.2) mg/dL Total Bilirubin 0.30 (0.1-1.2) mg/dL AST 21 (5-40) units/L ALT 17 (7-56) units/L Alkaline Phosphatase 58 (35-129) units/L Total Protein 7.3 (6.3-8.2) g/dL Albumin 4.4 (3.9-5) g/dL Albumin/Globulin Ratio 1.5 % HCG, Quant (0-4) mIU/mL Urine Color Yellow (Yellow) Urine Turbidity Clear (Clear) Urine pH 5.0 (5.0-7.0) Ur Specific [place] 1.025 (1.003-1.030) Urine Protein <15 mg/dl (Negative) mg/dL Urine Glucose (UA) Neg (Negative) mg/dL Urine Ketones Neg (Negative) mg/dL Urine Blood Lg (Negative) Urine Nitrite Neg (Negative) Urine Bilirubin Neg (Negative) Urine Urobilinogen < 2.0 (<2.0) mg/dL Ur Leukocyte Esterase Neg (Negative) Urine WBC (Auto) 1.0 (0.0-6.0) /HPF Urine RBC (Auto) 3.0 (0.0-6.0) /HPF U Epithel Cells (Auto) 2.0 (0-13.0) /HPF Urine Mucus Few /HPF Blood Type Antibody Screen - Radiology Data Radiology results: report reviewed, image reviewed [facility] [address] [place] [address] Cat Scan Report Signed Patient: DMITRY REYES MR#: [id number] : 1980 Acct:[id number] Age/Sex: 37 / F ADM Date: 06/07/17 Loc: ED Attending Dr: Ordering Physician: BELLA AGUILAR MD Date of Service: 06/07/17 Procedure(s): CT pelvis w con Accession Number(s): [id number] cc: BELLA AGUILAR MD CT PELVIS WITH CONTRAST INDICATION: Vaginal bleeding, status post hysterectomy. COMPARISON: None similar. FINDINGS: Pelvis CT performed following IV contrast. Axial, sagittal and coronal CT reconstructions obtained. Multiple coils anterior to the sacrum on the left may represent gonadal vein embolization. Similar lesser coils also noted to right of L4 vertebral body. Uterus surgically absent without significant stranding or definite abnormal fluid collection in the pelvis. Grossly unremarkable urinary bladder, adnexa and nonopacified GI tract. Normal appendix seen. Patent aortoiliac tree. Slight bilateral SI joint degenerative spurring may be developing inferiorly. 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 Please correlate. Thank you for the opportunity to participate in this patient's care. Transcribed By: RS Dictated By: OSWALD VALDIVIA MD Electronically Authenticated By: OSWALD VALDIVIA MD Signed Date/Time: 06/07/17 1421 - Medical Decision Making Differential diagnosis, including but not limited to: Urinary tract infection "postoperative vaginal bleeding, vaginal hematoma Assessment and plan: 37-year-old female one month status post hysterectomy with intermittent bleeding after urination. She is afebrile with reassuring vital signs, has mild abdominal tenderness one month after her surgical intervention. She had a gynecologic examination performed by her private pipe stripper, Dr. Aguilar, and she declined a repeat gynecologic examination from this provider. Laboratory studies unremarkable, CT scan withno acute findings that would require emergent intervention, case was discussed with Dr. Aguilar, and the patient can follow up with Dr. Aguilar as an outpatient. Patient will be discharged at this time, return precautions are reviewed, she declined pain medication. Critical care attestation.: If time is entered above; I have spent that time in minutes in the direct care of this critically ill patient, excluding procedure time. ED Disposition Clinical Impression: History of robot-assisted laparoscopic hysterectomy Disposition: DC-01 TO HOME OR SELFCARE Is pt being admited?: No Does the pt Need Aspirin: No Condition: Stable Additional Instructions: Continue current outpatient medications. Follow up with her pipe stripper within the next week. Return to the ER right away with new pain, worsened pain , migration of pain, fevers, chills, lethargy, irritability, projectile vomiting , change in mental status, confusion, inability to tolerate liquid feeds. Referrals: PRIMARY CARE, [Primary Care Provider] - 3-5 Days BELLA AGUILAR MD [Staff Physician] - 3-5 Days
[2017-06-07 15:57] VITALS: BP 93/56
== END 2017-06-07 16:09 | disposition home or self-care (01) ==
LOC: ED 10:50
DX: N93.9 Abnormal uterine and vaginal bleeding, unspecified (principal); Z90.710 Acquired absence of both cervix and uterus; R10.819 Abdominal tenderness, unspecified site
CPT/HCPCS: 36415; 72193; 80053; 81001; 84702; 85025; 86850; 86900; 86901; 87086; 99284; Q9967